=== PATIENT | male | born 1990 | race African-American/Black ===

== ENCOUNTER 2019-01-09 04:21 | Emergency (ER) | payer BC, OTHER ==
[2019-01-09] MEDS: TRIMETHOPRIM/SULFAMETHOX (DS) TAB PO (05:48)
[2019-01-09] MEDS: IBUPROFEN 600 MG TAB PO (05:48)
== END 2019-01-09 07:02 | disposition home or self-care (01) ==
LOC: FTE 04:21
DX: M79.671 Pain in right foot (principal)
CPT/HCPCS: 99283